=== PATIENT | male | born 1980 | race Caucasian/White ===

== ENCOUNTER 2019-08-01 00:47 | Emergency (ER) | payer OTHER ==
[~2019-08-01] VITALS: Ht 182.9 cm; Wt 129.3 kg
[2019-08-01] MEDS ORDERED: ASPIRIN 81 MG TAB.CHEW ONE (01:03)
[2019-08-01] MEDS ORDERED: HEPARIN for IV BOLUS 10,000 UNIT/10 ML VIAL. ONE (01:09)
[2019-08-01] MEDS ORDERED: IV NORMAL SALINE 1,000ML 1,000 ML IV ONE (01:15)
[2019-08-01] MEDS ORDERED: ASPIRIN 81 MG TAB.CHEW PO ONE (01:15)
[2019-08-01] MEDS ORDERED: HEPARIN for IV BOLUS 10,000 UNIT/10 ML VIAL. IV ONE (01:15)
[2019-08-01 01:20] VITALS: BP 201/120
--- NOTE | 2019-08-01 01:22 | PHYS DOC ---
Past History Past Medical History: Hypertension Additional Past Surgical Histo: Left knee Smoking: Cigarettes Alcohol Use: None Drug Use: None Adult General Chief Complaint Chief Complaint: CHEST PAIN HPI HPI 39-year-old male presents with sudden shortness of breath which started this evening. Patient reports he feels as if he "can't catch his breath ". Patient also reports some associated intermittent chest pain that is been ongoing for the past week. Denies any trauma. Denies fever or chills. Denies leg swelling or calf tenderness. Reports cardiac risk factors of high blood pressure, smoking, and family history with parents both having MIs. Patient denies history of DVT or PE. Reports family history of mother with history of "clots." Patient reports recently started on new blood pressure medication in the last few weeks but has not been taking it due to "making his stomach upset." Review of Systems Review of Systems Constitutional: Denies fever or chills Eyes: Denies redness or eye pain HENT: Denies nasal congestion or sore throat Respiratory: Denies cough; reports shortness of breath Cardiovascular: Reports chest pain and palpitations GI: Denies abdominal pain, nausea, or vomiting : Denies dysuria or hematuria Musculoskeletal: Denies back pain or joint pain Integument: Denies rash or skin lesions Neurologic: Denies headache, focal weakness or sensory changes Complete systems were reviewed and found to be within normal limits, except as d ocumented in this note. Current Medications Current Medications Current Medications Medications (Trade) Dose Ordered Sig/Emery Start Time Stop Time Status Last Admin Dose Admin Aspirin (Children'S Aspirin) 324 mg 1X ONCE 08/01/19 01:15 08/01/19 01:16 UNV Fentanyl Citrate (Fentanyl 2ml Vial) 75 mcg 1X ONCE 08/01/19 01:15 08/01/19 01:16 UNV Heparin Sodium (Porcine) (Heparin Sodium) 4,000 unit 1X ONCE 08/01/19 01:15 08/01/19 01:16 UNV Sodium Chloride 1,000 ml @ 1,000 mls/hr 1X ONCE 08/01/19 01:15 08/01/19 02:14 UNV Allergies Allergies Allergies Coded Allergies Type Severity Reaction Last Updated Verified No Known Drug Allergies 08/01/19 No Physical Exam Physical Exam Constitutional: Well developed, well nourished, uncomfortable, non-toxic appearance HENT: Normocephalic, atraumatic, oropharynx moist Eyes: Conjunctiva normal, no discharge Neck: Normal range of motion, no tenderness, supple Cardiovascular: Heart rate tachycardic, regular rhythm Lungs & Thorax: Bilateral breath sounds diminished at bases, no wheezing Abdomen: Soft, no tenderness Skin: Warm, dry, no erythema, no rash Extremities: No tenderness, ROM intact, 1+ edema to bilateral lower extremities Neurologic: Alert and oriented X 3, no focal deficits noted Psychologic: Affect normal, judgement normal EKG EKG @ 0053 Sinus tachycardia at 131bpm, ST elevation V2-V4 with reciprocal ST depression in II-III and aVF, t wave inversions in I and aVL Radiology/Procedures Radiology/Procedures AP CXR: (preliminary interpretation by ED physician) Some patchy lung markings noted, no pneumothorax, bibasilar atelectasis/infiltrate noted Course & Med Decision Making Course & Med Decision Making Pertinent Labs and Imaging studies reviewed. (See chart for details) Patient presents with report of intermittent chest pain times one week with sudden shortness of breath which occurred this evening. Patient noted to be h ypoxic and tachycardic. Improved with supplemental O2. EKG with signs of active anterior OH. CODE STEMI activated. Discussed case with Dr. Mendoza (cardiology at [facility]) who is accepting of taking patient to [facility]. Discussed case with Dr. Cardoza (hospitalist) who is in agreement with admission to ICU after [facility] at [facility]. Aspirin provided. Heparin bolus initiated. Pain addressed. Labs obtained and posted to chart. CXR without acute process. Discussed findings and plan with patient and family, who acknowledge understanding and agreement. Dragon Disclaimer Dragon Disclaimer This electronic medical record was generated, in whole or in part, using a voice recognition dictation system. Departure Departure: Impression: Primary Impression: STEMI (ST elevation myocardial infarction) Additional Impressions: Hypoxia Hypertension Disposition: 05 TRANSFER OTHER ([facility]- Dr. Mendoza (cardiology) consulted and Dr. Cardoza (hospitalist) accepting of transfer) Admitting Physician: Bartolo Cardoza Condition: GUARDED HEART Score for Chest Pain PTs The HEART Score for CP Pts HEART Score for Chest Pain: HEART Score for Chest Pain Response (Comments) Value History Highly Suspicious [address] Depression 2 Age < 45 0 Risk Factors >3 Risk Factors or Hx CAD 2 Troponin >3 x Normal Limit 2 Total 8 Risk Factors: Risk Factors: DM, Current or recent (<one month) smoker, HTN, HLP, family history of CAD, obesity. Risk Scores: Score 0 - 3: 2.5% MACE over next 6 weeks - Discharge Home Score 4 - 6: 20.3% MACE over next 6 weeks - Admit for Clinical Observation Score 7 - 10: 72.7% MACE over next 6 weeks - Early Invasive Strategies Critical Care Time Critical care time was 30 minutes which includes time at bedside, spent in discussion of patient's care with specialists and/or family members, with interpretation of laboratory and/or radiological studies and is exclusive of procedures. Problem Qualifiers Primary Impression: STEMI (ST elevation myocardial infarction) Involved coronary artery: unspecified coronary artery Qualified Codes: I21.3 - ST elevation (STEMI) myocardial infarction of unspecified site Additional Impressions: Hypertension Hypertension type: unspecified Qualified Codes: I10 - Essential (primary) hypertension CYNTHIA COLE DO Aug 01, 2019 01:21
[2019-08-01 01:25] LABS: BASO # 0.1 x10^3/uL (0.0-0.2); BASO % 1 % (0-3); EOS # 0.3 x10^3/uL (0.0-0.7); EOS % 2 % (0-3); HEMATOCRIT 50.6 % (39.0-53.0); HEMOGLOBIN 17.3 g/dL (13.0-17.5); LYMPH # 4.3 x10^3/uL (1.0-4.8); LYMPH % 28 % (24-48); MEAN CORPUSCULAR HEMOGLOBIN 32 pg (25-35); MEAN CORPUSCULAR HGB CONC 34 g/dL (31-37); MEAN CORPUSCULAR VOLUME 93 fL (79-100); MONO # 1.2 x10^3/uL (0.0-1.1); MONO % 8 % (0-9); NEUT # 9.6 x10^3uL (1.8-7.7); NEUT % 62 % (31-73); PLATELET COUNT 245 x10^3/uL (140-400); RED BLOOD COUNT 5.44 x10^6/uL (4.30-5.70); RED CELL DISTRIBUTION WIDTH 13.1 % (11.5-14.5); WHITE BLOOD COUNT 15.5 x10^3/uL (4.0-11.0)
[2019-08-01] MEDS ORDERED: ACET500T68 PO (01:26)
[2019-08-01] MEDS ORDERED: MORPHINE SULFATE 4 MG/ML DISP.SYRIN. ONE (01:33)
[2019-08-01] MEDS ORDERED: ONDANSETRON PF 4 MG/2 ML VIAL. ONE (01:33)
[2019-08-01 01:35] LABS: CALCIUM 8.9 mg/dL (8.5-10.1); CREATININE 0.9 mg/dL (0.7-1.3); GFR 93.5; POTASSIUM 3.5 mmol/L (3.5-5.1)
[2019-08-01] MEDS ORDERED: ONDANSETRON PF 4 MG/2 ML VIAL. IVP ONE (01:45)
[2019-08-01] MEDS ORDERED: MORPHINE SULFATE 4 MG/ML DISP.SYRIN. IV ONE (01:45)
[2019-08-01 01:51] LABS: TOTAL BILIRUBIN 0.3 mg/dL (0.2-1.0)
[2019-08-01 01:58] LABS: % BANDS 1 % (0-9); % EOS 1 % (0-5); % LYMPHS 31 % (24-48); % MONOS 8 % (0-10); % SEGS 59 % (35-66); PLT ESTIMATE ADEQUATE (ADEQUATE)
--- NOTE | 2019-08-01 04:55 | RAD ---
Chest AP portable at 12:59 AM: Reason for examination: Chest pain. The heart size is normal. Mediastinum is unremarkable. Lung palm and mild increase in the interstitial markings without consolidative infiltrates or pleural effusion. No acute bony abnormalities are seen. Impression: Mild increase in the interstitial markings without consolidative infiltrate or pleural effusion. Electronically signed by: Shira Stephens MD (08/01/2019 4:52 AM) [facility]
--- NOTE | 2019-08-01 05:25 | EKG ---
[address] [address] Test Date: 2019-08-01 Test Time: 00:53:18 Pat Name: EV HENRY Department: Room: Gender: M Interventional Physician: : 1980 Requested By: CYNTHIA COLE Order Number: [id number] Reading MD: Measurements Intervals [place] Rate: 131 P: 113 MI: 130 QRS: 3 QRSD: 74 T: 162 QT: 282 QTc: 421 Interpretive Statements SINUS TACHYCARDIA ST ABNORMALITY, POSSIBLE INFERIOR SUBENDOCARDIAL INJURY ST-T ELEVATION, CONSIDER ACUTE ANTERIOR INFARCT ABNORMAL ECG RI6.01 No previous ECG available for comparison
== END 2019-08-01 01:39 | disposition short-term general hospital (02) ==
LOC: ER 00:47
DX: I21.3 ST elevation (STEMI) myocardial infarction of unspecified site (principal); I10 Essential (primary) hypertension; R09.02 Hypoxemia; F17.210 Nicotine dependence, cigarettes, uncomplicated
CPT/HCPCS: 36415; 71045; 80053; 82553; 83690; 83735; 83880; 84484; 85007; 85025; 85610; 85730; 93005; 96374; 96375; 99291; J1644; J3010; J7030

== ENCOUNTER → 2020-08-07 | Outpatient (CLI) | payer BC ==
[~2020-08-07] MED LIST: ACET500T68 PO; IOHEXOL 240 MG/ML 50ML VIAL. ONE
[2020-08-07] MEDS: IOHEXOL 300 MG/ML 75 ML VIAL. IV ONE (11:22)
[2020-08-07] MEDS: IOHEXOL 240 MG/ML 50ML VIAL. PO ONE (11:23)
--- NOTE | 2020-08-07 14:39 | RAD ---
CT of the abdomen and pelvis with contrast 08/07/2020 INDICATION: 40-year-old male with right lower quadrant pain. COMPARISON STUDY: None TECHNIQUE: Multidetector CT imaging of the abdomen and pelvis was obtained following the administrati on of IV and oral contrast. FINDINGS: Visualized lung bases are unremarkable. Liver, gallbladder, adrenal glands, and spleen are unremarkable. Small accessory splenule noted. Pancreas is unremarkable. There is a small cyst seen wi thin the inferior anterior left kidney measures approximately 1.9 cm in diameter. Kidneys are otherwi se unremarkable. There is no bowel obstruction. Scattered colonic diverticulosis noted without evidence of diverticuli tis. No acute inflammatory changes involving the bowel are identified. The appendix is unremarkable i n appearance. The bladder is grossly unremarkable. No free fluid or free air is seen in the abdomen o r pelvis. Retroaortic left renal vein noted, an incidental variant. Degenerative changes of the thora cic spine noted. No acute osseous abnormality is seen. IMPRESSION: No CT evidence of acute intra-abdominal abnormality is identified. CT DOSING PQRS STATEMENT: One or more of the following individualized dose reduction techniques were utilized for this examinat ion: 1. Automated exposure control 2. Adjustment of the mA and/or kV according to patient size 3. Use of iterative reconstruction technique Electronically signed by: Christos Da Silva MD (08/07/2020 2:36 PM) [id number]
== END ==
LOC: CT 10:18
PROVIDERS: ATTEND Family Medicine
DX: K57.30 Diverticulosis of large intestine without perforation or abscess without bleeding (principal); M47.814 Spondylosis without myelopathy or radiculopathy, thoracic region
CPT/HCPCS: 74177; Q9966; Q9967

== ENCOUNTER 2021-01-04 19:34 | Observation (INO) | payer BC ==
[~2021-01-04] VITALS: Ht 182.9 cm; Wt 123.1 kg
[~2021-01-04 19:34] MED LIST changes: -IOHEXOL 240 MG/ML 50ML VIAL. ONE
[2021-01-04] MEDS ORDERED: IV NORMAL SALINE 1,000ML 1,000 ML IV SCH (20:00)
[2021-01-04 20:18] LABS: BASO % 0 % (0-3); EOS # 0.1 x10^3/uL (0.0-0.7); EOS % 1 % (0-3); HEMATOCRIT 41.6 % (39.0-53.0); HEMOGLOBIN 14.3 g/dL (13.0-17.5); LYMPH % 27 % (24-48); MEAN CORPUSCULAR HEMOGLOBIN 32 pg (25-35); MEAN CORPUSCULAR HGB CONC 34 g/dL (31-37); MEAN CORPUSCULAR VOLUME 93 fL (79-100); MONO # 0.8 x10^3/uL (0.0-1.1); MONO % 8 % (0-9); NEUT # 7.2 x10^3uL (1.8-7.7); NEUT % 65 % (31-73); PLATELET COUNT 274 x10^3/uL (140-400); RED BLOOD COUNT 4.46 x10^6/uL (4.30-5.70); WHITE BLOOD COUNT 11.1 x10^3/uL (4.0-11.0)
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
[2021-01-04] MEDS ORDERED: MORPHINE SULFATE 4 MG/ML DISP.SYRIN. IV ONE (20:45)
[2021-01-04] MEDS ORDERED: ASPIRIN CHEWABLE 81 MG TABLET. PO ONE (20:45)
[2021-01-04 20:53] LABS: POTASSIUM 4.1 mmol/L (3.5-5.1)
[2021-01-04] MEDS ORDERED: IV NORMAL SALINE 1,000ML 1,000 ML IV ONE (21:00)
[2021-01-04 21:06] LABS: ALBUMIN 4.3 g/dL (3.4-5.0); ALBUMIN/GLOBULIN RATIO 1.3 (1.0-1.7); TOTAL BILIRUBIN 0.5 mg/dL (0.2-1.0); TOTAL PROTEIN 7.6 g/dL (6.4-8.2)
--- NOTE | 2021-01-04 21:44 | RAD ---
Single view chest dated 01/04/2021 9:41 PM: COMPARISON: 08/01/2019 Clinical Indication: Chest spasm. Findings: Single upright portable exam of the chest was performed. Heart size and mediastinal contours are with in normal limits. Lungs are clear. No consolidation or pleural effusion. No pneumothorax. IMPRESSION: No acute radiographic abnormality. Electronically signed by: Chi Hassan MD (01/04/2021 9:42 PM) CLIVE
--- NOTE | 2021-01-04 21:47 | EKG ---
[address] [address] Test Date: 2021-01-04 Test Time: 20:03:38 Pat Name: EV HERNY Department: Room: Gender: M [employer]: : 1980 Requested By: DON BUTLER Order Number: [id number] Reading MD: Measurements Intervals [place] Rate: 74 P: 35 OR: 168 QRS: 5 QRSD: 68 T: 37 QT: 346 QTc: 384 Interpretive Statements SINUS RHYTHM OTHERWISE NORMAL ECG RI6.02 No previous ECG available for comparison
[2021-01-04 22:19] LABS: BARBITURATES NEG (NEG); BENZODIAZEPINES NEG (NEG); CANNABINOIDS POS (NEG); COCAINE NEG (NEG); METHADONE NEG (NEG); OPIATES POS (NEG); PHENCYCLIDINE NEG (NEG)
[2021-01-04 22:20] LABS: AMPHETAMINE/METHAMPHETAMINE NEG (NEG)
[2021-01-04 22:22] LABS: BILIRUBIN,URINE NEG (NEG); CLARITY,URINE CLEAR; COLOR,URINE YELLOW; GLUCOSE,URINE NEG (NEG); NITRITE,URINE NEG (NEG); UROBILINOGEN,URINE 0.2 mg/dL (0.2 mg/dL)
[2021-01-04 22:27] LABS: BACTERIA,URINE FEW /HPF (0-FEW); SQUAMOUS EPITHELIAL CELL,UR FEW /LPF; WBC,URINE 20-40 /HPF (0-4)
[2021-01-04 22:28] LABS: HYALINE CASTS, URINE MOD /HPF
[2021-01-04 22:33] LABS: TRICHOMONAS,URINE PRESENT
[2021-01-04 22:55] VITALS: BP 121/79
[2021-01-04] MEDS ORDERED: CARV12.547 PO (23:13)
[2021-01-04] MEDS ORDERED: AMLO-187 PO (23:13)
[2021-01-04] MEDS ORDERED: ASPI-630 PO (23:13)
[2021-01-04] MEDS ORDERED: TICA90TA PO (23:13)
[2021-01-04] MEDS ORDERED: LISI20TA18 PO (23:13)
[2021-01-04] MEDS ORDERED: CHLO25TA9 PO (23:13)
[2021-01-04] MEDS ORDERED: ATOR40TA59 PO (23:13)
[2021-01-04] MEDS: ACETAMINOPHEN 500 MG TABLET PO PRN (23:56)
[2021-01-05 05:40] VITALS: BP 100/64
[2021-01-05] MEDS ORDERED: ASPIRIN CHEWABLE 81 MG TABLET. PO SCH (09:00)
[2021-01-05] MEDS ORDERED: amLODIPine BESYLATE 10 MG TABLET PO SCH (09:00)
[2021-01-05] MEDS ORDERED: CARVEDILOL 12.5 MG TABLET PO SCH (09:00)
[2021-01-05] MEDS ORDERED: TICAGRELOR 90 MG TABLET. PO SCH (09:00)
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
[2021-01-05] MEDS: ACETAMINOPHEN 500 MG TABLET PO PRN (09:42)
[2021-01-05 09:47] LABS: CREATININE 1.8 mg/dL (0.7-1.3); GFR 41.8; POTASSIUM 3.7 mmol/L (3.5-5.1)
[2021-01-05 10:47] VITALS: BP 112/74
[2021-01-05 10:48] VITALS: BP 129/85
[2021-01-05 10:49] VITALS: BP 129/85
[2021-01-05] MEDS ORDERED: IV NORMAL SALINE 1,000ML 1,000 ML IV ONE (11:00)
--- NOTE | 2021-01-05 11:51 | HP ---
ADMIT DATE: 01/05/2021 HISTORY OF PRESENT ILLNESS: The patient is a 40-year-old male patient, who presented to the emergency room with a syncopal episode at around seven 1900. He apparently was outside all day long, riding his motorcycle and when he got home, he was started barbecuing and that is when he developed syncope and he apparently felt dizzy and walked over to the fan in the garage and then started to fall to the ground when she got him. The patient denied any pain or shortness of breath or dizziness prior to syncopal episode. stated that earlier this week, he did say that he felt kind of funny in his left chest and shoulder area and stayed home from work. The patient states that in 07/2019 had, had a heart attack and at that time, he had 2 stents placed. He reported that he is taking 81 mg aspirin. He was extensively investigated in the emergency room and has had an EKG, which showed he was in sinus rhythm with a heart rate of 74 beats per minute, normal intervals, normal axis, no STEMI. His chest x-ray showed that the patient has no acute radiographic abnormalities. His lab work showed that he was dehydrated and in fact, his creatinine was 2, BUN 28, although last year, his creatinine was 0.9 mg/dL. The patient was admitted, had 2 sets of cardiac enzymes that ruled out myocardial infarction. He has received a liter of normal saline and admitted to two more sets of cardiac enzyme and consult the Cardiology Team. PAST MEDICAL HISTORY: Significant for coronary artery disease status post myocardial infarction on 07/2014 with a PCI and stent deployment x2. He is known to have hypertension and hyperlipidemia. PAST SURGICAL HISTORY: Significant for PCI with stent deployment and left knee surgery. ALLERGIES: He has no known drug allergies. MEDICATIONS: He is currently on Brilinta 90 mg twice a day, atorvastatin calcium 40 mg at bedtime. He is on aspirin 81 mg once a day, lisinopril 20 mg twice a day, chlorthalidone 25 mg once a day, carvedilol 12.5 mg once a day, amlodipine besylate 10 mg once a day, acetaminophen ___ mg every 8 hours. FAMILY HISTORY: Has two older sisters and one young brother, all healthy. His father at age of 65 because of [employer] lymphoma; however, he had heart attack when he was 40 years old. His mother is still alive at age of 70; however, she also had a heart attack in her 40s. SOCIAL HISTORY: He is , has 2 daughters. He quit smoking in 07/2019. He also quit drinking alcohol in 2019. He continued to smoke marijuana occasionally. He is a senior property accountant. REVIEW OF SYSTEMS: The patient denied any blurring of vision, cataracts, glaucoma or macular degeneration. Denied any earache, tinnitus or sensory deafness. Denied any nosebleed, stuffy nose or postnasal drip. Denied any sore throat, sore tongue, toothache, hoarseness of voice or difficulty swallowing. Denied any nausea, vomiting, diarrhea or constipation. Denied any hematemesis, melena or hematochezia. Denied any dysuria, frequency or hematuria. Denied any chest pain, shortness of breath, orthopnea, paroxysmal nocturnal dyspnea. PHYSICAL EXAMINATION: GENERAL: On arrival to the emergency room, he looked well and was clearly in no apparent respiratory distress. No pallor, jaundice, cyanosis from thyromegaly. No jugular distention. No limb edema. VITAL SIGNS: His heart rate was 80, blood pressure is 137/84, temperature was 98.3, respiratory rate was 16 and oxygen saturation was 99% on room air. HEENT: Examination of the head, eyes, ears, nose, and throat: Normocephalic, atraumatic. NECK: Supple. HEART: Showed normal first and second heart sounds, no gallop, murmur. CHEST: Clear to auscultation. No crepitation or rhonchi. ABDOMEN: Distended, soft, nontender. NEUROLOGIC: He was grossly intact. LABORATORY DATA: On admission showed a white cell count of 11,100, hemoglobin 14, hematocrit 42, MCV 93, and platelet count of 274,000. Serum sodium was 136, potassium 4.1, chloride 99, bicarbonate 26, anion gap of 11, BUN 28, creatinine 2, estimated GFR was 37 mL per minute. Glucose was 98, calcium was 9, magnesium 2. Total bilirubin, AST, ALT, alkaline phosphatase were normal. His first set troponin was less than 0.017. His beta natriuretic peptide was ___. Total protein 7.5, albumin was 4.3. Urinalysis showed the urine was yellow, clear with a pH of 5.5, specific gravity of 1.015. Urine was negative for protein, glucose, ketones, blood, nitrite and leukocyte esterase. There is only a small amount of leukocyte esterase with 1-2 RBCs, 20-40 WBC. There are very few bacteria. His toxic screen was positive for opiates and cannabinoids, negative for methadone, barbiturates, phencyclidine, amphetamine, methamphetamine, benzodiazepine and alcohol. ASSESSMENT AND PLAN: The patient was admitted with diagnosis of syncope, was treated with IV fluid. Also, has acute kidney injury. His serum creatinine was 0.9 on 08/01/2019; however, he is also already on hydrochlorothiazide, lisinopril, and apparently he is dehydrated and/or combination of all this has resulted in acute kidney injury. We will continue with IV fluid. We will do two more sets of cardiac enzyme. Consulted the Microbiology Instructor. JOHN DR: Petra TID: [id number]
[2021-01-05] MEDS: IV NORMAL SALINE 1,000ML 1,000 ML IV SCH ×2 (12:00→14:45)
[2021-01-05 14:43] VITALS: BP 116/76
--- NOTE | 2021-01-05 15:43 | RAD ---
EXAM: XR KNEE _3 [id number]_LT 01/05/2021 11:52 AM CLINICAL INDICATION: Fall, knee pain with history of meniscal repair COMPARISON: None TECHNIQUE: AP, oblique, and lateral views of the left knee FINDINGS: No acute fracture. Alignment is normal. There is mild tricompartmental degenerative joint disease, greatest in the medial compartment. Small joint effusion. IMPRESSION: 1. No acute osseous abnormality. 2. Mild tricompartmental degenerative joint disease. 3. Small joint effusion. Electronically signed by: Delicia Flores MD (01/05/2021 3:41 PM) [id number]
[2021-01-05 17:32] LABS: CALCIUM 8.1 mg/dL (8.5-10.1); CREATININE 1.3 mg/dL (0.7-1.3); GFR 60.8; POTASSIUM 3.7 mmol/L (3.5-5.1)
[2021-01-05 18:20] VITALS: BP 134/84
[2021-01-05] MEDS ORDERED: ATORVASTATIN CALCIUM 20 MG TABLET PO SCH (21:00)
== END 2021-01-05 18:35 | disposition home or self-care (01) ==
LOC: ER 19:34 → 1 SOUTH 22:06
PROVIDERS: ADMIT Internal Medicine; ATTEND Internal Medicine
DX: N17.9 Acute kidney failure, unspecified (principal); R55 Syncope and collapse; I10 Essential (primary) hypertension; I25.10 Atherosclerotic heart disease of native coronary artery without angina pectoris; I25.2 Old myocardial infarction; E78.00 Pure hypercholesterolemia, unspecified; E78.5 Hyperlipidemia, unspecified; E86.0 Dehydration; F12.90 Cannabis use, unspecified, uncomplicated; F17.210 Nicotine dependence, cigarettes, uncomplicated; Z95.5 Presence of coronary angioplasty implant and graft; Z79.82 Long term (current) use of aspirin; Z98.890 Other specified postprocedural states; Z79.899 Other long term (current) drug therapy; Z95.1 Presence of aortocoronary bypass graft; W18.30XA Fall on same level, unspecified, initial encounter; Y93.89 Activity, other specified; Y92.89 Other specified places as the place of occurrence of the external cause; Y99.8 Other external cause status
CPT/HCPCS: 36415; 71045; 73562; 80048; 80053; 80061; 80307; 81001; 82550; 83735; 83880; 84484; 85025; 87086; 93005; 96361; 96374; 99285; G0378; J2270; J7030; G0379

== ENCOUNTER → 2021-01-08 | Outpatient (CLI) | payer BC ==
[2021-01-05 18:20] VITALS: BP 134/84
[~2021-01-08] MED LIST changes: +AMLO-187 PO; +ASPI-630 PO; +ATOR40TA59 PO; +CARV12.547 PO; +CHLO25TA9 PO; +LISI20TA18 PO; +TICA90TA PO
[2021-01-08 10:28] LABS: CREATININE 1.5 mg/dL (0.7-1.3); GFR 51.6; POTASSIUM 4.5 mmol/L (3.5-5.1)
== END ==
LOC: LAB 09:16
PROVIDERS: ATTEND Internal Medicine Cardiovascular Disease
DX: I10 Essential (primary) hypertension (principal)
CPT/HCPCS: 36415; 80048